=== PATIENT | male | born 1965 | race Caucasian/White ===

== ENCOUNTER → 2025-01-23 10:38 | Outpatient (REF) | payer OTHER, SELFPAY | LOC: MRI 3T 10:38 | PROVIDERS: ATTENDING PHYSICIAN Specialist; FAMILY PHYSICIAN Physician Assistant Medical | DX: R97.20 Elevated prostate specific antigen [PSA] (principal) | CPT/HCPCS: 72197; A9575 ==

== ENCOUNTER 2025-02-13 17:18 | Inpatient (IN) | payer OTHER, SELFPAY ==
[2025-02-13] VITALS (8 sets, daily range): BP systolic 129–168; BP diastolic 77–104; BMI 28.4; BMI 27.7
[2025-02-13 11:47] LABS: % Basophils 0.7 % (0-2); % Immature Granulocytes 0.5 % (0-0.5); % Lymphocytes 19.5 % (20.5-51.1); % Monocytes 8.3 % (1.7-9.3); Absolute Eosinophils 0.2 10^3/uL (0-0.7); Absolute Lymphocytes 1.2 10^3/uL (1.2-3.4); Absolute Monocytes 0.5 10^3/uL (0.1-0.6); Absolute Neutrophils 4.1 10^3/uL (1.4-6.5); Hemoglobin 14.8 g/dL (13.0-18.0); Mean Corp Hgb Conc. 34.4 g/dL (33.0-37.0); Mean Corpuscular Hgb 30.6 pg (27.0-31.0); Mean Platelet Volume 8.8 fL (7.4-10.4); Nucleated Red Blood Cells % 0 % (-); Platelet Count 276 10^3/uL (130-400); Red Blood Cell Count 4.83 10^6/uL (4.70-6.10); Red Cell Dist. Width 13.2 % (11.5-14.5)
--- NOTE | 2025-02-13 12:02 | ED.GENMED ---
History of Present Illness
General
Chief Complaint: Abdominal Symptoms
Source: patient
Exam Limitations: none
Time Seen by Provider: 02/13/25 11:40
History of Present Illness
History of Present Illness:
59-year-old male presents with epigastric and right upper quadrant abdominal pain that has been intermittent since 5 days ago. Initially had pain that suddenly woke him up from sleep doubled him over to the right upper quadrant. This was after
having a late dinner that included greasy foods. The day after this pain onset he saw that he had rn float colored stool. Since then he has not had intermittent discomfort to the epigastric region worse with eating. He had labs drawn as an
outpatient which demonstrated elevated bilirubin and liver functions. He is also currently being worked up for prostate cancer. He is due to receive a biopsy in the near future
Past History
Past History
ED Past Medical History: Hypercholesterolemia
Social History
Tobacco: Non-smoker
Personal:
Living: with family
Employment: Employed
Phy Exam
Physical Exam
Physical Exam:
General: Well-appearing male no acute respiratory distress
HEENT: Normocephalic atraumatic sclera anicteric
Heart: Regular rate and rhythm
Lungs: Clear
Abdomen: Soft tender to the epigastric region negative Bright sign no guarding
Extremities: No cyanosis no jaundice
Course
Orders/Labs/Results
Orders:
Orders
02/13/25 11:36
Electrocardiogram (*1) Urgent
Reason for Study: Abdominal Pain
EKG- Treatment ONCE
02/13/25 11:41
Complete Blood Count/With Diff Urgent
Comprehensive Metabolic Panel Urgent
Lipase Urgent
02/13/25 12:02
US Abdomen Complete/Upper Urgent
Comment:
Reason For Exam: ruq pain
02/13/25 15:04
CT Abd/pel W Iv And Oral Contr Urgent
Comment:
Reason For Exam: abdominal pain,n elevated LFT
Iohexol [Omnipaque] See Protocol PO NOW STA
Abnormal Lab Results
02/13/25
11:41
Lymphocytes % 19.5 L %
(20.5-51.1)
Glucose 119 H mg/dl
(70-99)
Total Bilirubin 2.8 H mg/dl
(0.2-1.3)
AST 303 H U/L
(17-59)
ALT 783 H* U/L
(0-50)
02/13/25 11:41
02/13/25 11:41
Vital Signs
Initial and Last Documented VS:
Initial Vital Signs
Temp Pulse Resp BP Pulse Ox
98.4 F 85 16 168/95 98
02/13/25 10:27 02/13/25 10:27 02/13/25 10:27 02/13/25 10:27 02/13/25 10:27
Last Documented Vital Signs
Temp Pulse Resp BP Pulse Ox
98.3 F 67 13 146/99 98
02/13/25 15:13 02/13/25 16:30 02/13/25 16:00 02/13/25 16:00 02/13/25 16:30
MDM/Problems Addressed
Differential Diagnosis Includes:
Upper abdominal pain. Consider biliary colic versus gastritis or pancreatitis versus constipation
Check labs. Ultrasound ordered
*Critical Care Note
Total Time (30-74mins, 75-104mins- exclusive of procedures): Not Applicable
Update Note
Update Note:
Ultrasound negative. Liver functions reviewed. Slightly improved from 2 days ago but still elevated. Discussed with GI who recommended CT with oral and IV contrast which is pending.
ED Attending Note
-
Portions of this chart may have been created with voice recognition software.� Occasional wrong word or��sound alike� substitutions may have occurred due to the inherent limitations of voice recognition software.
Discharge Plan
Departure
Patient Disposition: Admit
Date of Disposition: 02/13/25
Time of Disposition: 16:43
Presentation/result/management discussed w/ accepting MD/DO: Hospitalist
Discharge Problem:
Abdominal pain, Elevated liver function tests
Prescriptions:
No Action
Theragen Tablet
1 tab PO DAILY
pantoprazole [Protonix] 20 mg Tablet,Delayed Release (Dr/Ec)
20 mg PO DAILY
cefdinir 300 mg Capsule
300 mg PO BID
Rx Instructions:
take for 3 days before biopsy
sertraline 50 mg Tablet
75 mg PO DAILY
rosuvastatin [Crestor] 10 mg Tablet
10 mg PO QPM
Referrals:
Elaine Hernandez PA [Family Provider] -
Interventions
Interventions:
*Risk Screen - Suicide Last Done: 02/13/25 10:29
*General Assessment Last Done: 02/13/25 11:37
*Neglect/Abuse Screening Last Done: 02/13/25 10:29
*ED- Fall Risk Assessment Last Done: 02/13/25 11:37
*ED COVID-19 Vaccine History Last Done: 02/13/25 11:37
VX-Csqevg-Sniysaxofr Assessment Last Done: 02/13/25 11:37
Discharge Date and Time
Print Language: SINHALA
[2025-02-13 12:08] LABS: AST (SGOT) 303 U/L (17-59); Albumin 4.6 g/dl (3.5-5.0); Alkaline Phosphatase 71 U/L (38-126); Blood Urea Nitrogen 11 mg/dl (9-20); Calcium 9.6 mg/dl (8.4-10.2); Carbon Dioxide 28 mmol/L (22-30); Chloride 106 mmol/L (98-107); Estimated Creatinine Clearance 90 ml/min; Glucose 119 mg/dl (70-99); Lipase 175 U/L (23-300); Potassium 4.3 mmol/L (3.5-5.1); Sodium 144 mmol/L (135-145); Total Bilirubin 2.8 mg/dl (0.2-1.3); Total Protein 7.3 g/dl (6.3-8.2); eGFR > 60.00
[2025-02-13 12:19] LABS: ALT (SGPT) 783 U/L (0-50)
[2025-02-13] MEDS: OMNIPAQUE 50 ML PO (15:10)
--- NOTE | 2025-02-13 16:51 | HPS.HSE ---
Family Physician
-
Family Physician: Elaine Hernandez
Chief Complaint
-
Epigastric abdominal pain
History of Present Illness
59-year-old male with past medical history for GERD, hyperlipidemia, anxiety presents with epigastric l pain that has been intermittent since 5 days ago. Initially had pain that suddenly woke him up from sleep on Monday night. The pain lasted
for 20 minutes then it resolved on its own. this was after having a late dinner that included greasy foods. Patient stated multiple episodes of black-colored stool. Denied nausea, vomiting or diarrhea. Patient stated, pain is only intermittent.
he had labs drawn as an outpatient which demonstrated elevated bilirubin and liver functions. His PCP started him on Protonix. He is also currently being worked up for prostate cancer. He is due to receive a biopsy tomorrow. Patient denied any
headache, dizzy or syncope. Patient denied fever, chills, chest pain, short of breath. Patient denied dysuria hematuria.
Upon arrival he was noted to have elevated LFTs, bili. Ultrasound negative. CT pending. Admitting for further management
Patient is on cefdinir prophylactically for possible biopsy tomorrow. Patient canceled biopsy for tomorrow as he is getting admitted.
Medical History
Past Medical History
Past Medical History: Reports Other
Additional Past Medical History:
Anxiety, hyperlipidemia, insomnia, depression, rectal bleeding
Past Surgical History: Reports Other
Additional Past Surgical History:
Oral surgery
Social History
Tobacco: Non-smoker
Alcohol: Occasional
Drug: None
Personal:
Living: With Family
Family History
Family History: Not pertinent
Allergies / Home Medications
Allergies reflects when Allergies were last updated in [facility].
Home Medications with original date entered in [facility]
Allergy/Medication List:
Allergies
Allergy/AdvReac Type Severity Reaction Status Date / Time
No Known Allergies Allergy Verified 02/13/25 10:29
Home Medications
cefdinir 300 mg capsule 300 mg PO BID 02/13/25
pantoprazole 20 mg tablet,delayed release (Protonix) 20 mg PO DAILY 02/13/25
rosuvastatin 10 mg tablet (Crestor) 10 mg PO QPM 02/13/25
sertraline 50 mg tablet 75 mg PO DAILY 02/13/25
therapeutic multivitamin 1 tab PO DAILY 02/13/25
Review of Systems
-
Constitutional: Reports No Symptoms
EENT: Reports No Symptoms
Respiratory: Reports No Symptoms
Cardiac: Reports No Symptoms
Abdomen/GI: Reports Other (Epigastric pain with light-colored stool)
: Reports No Symptoms
Musculoskeletal: Reports No Symptoms
Skin: Reports No Symptoms
Neurological: Reports No Symptoms
Endocrine: Reports No Symptoms
Hematologic/Lymphatic: Reports No Symptoms
Psych: Reports No Symptoms
Physical Exam
Vital Signs
Vital Signs
Temp Pulse Resp BP Pulse Ox
98.3 F 67 13 146/99 98
02/13/25 15:13 02/13/25 16:30 02/13/25 16:00 02/13/25 16:00 02/13/25 16:30
Physical Exam
General: Well Developed, Well Nourished and No Apparent Distress
HEENT: NormoCephalic, Moist mucous membranes and Atraumatic
Respiratory: Clear
Cardiac: S1/S2 and Regular Rhythm; No Murmur or Rub
GI: Soft, Non Tender, Non Distended and Normal Bowel Sounds; No Organomegaly
Rectal: Deferred by Provider
Musculoskeletal: No Clubbing, No Cyanosis and No Edema
Skin: No Rash
Neuro: AO x 3 and Nonfocal/grossly intact
Psych: Calm
Laboratory Results
-
02/13/25 11:41
02/13/25 11:41
Laboratory Results
Total Bilirubin 2.8 mg/dl (0.2-1.3) H 02/13/25 11:41
AST 303 U/L (17-59) H 02/13/25 11:41
ALT 783 U/L (0-50) H* 02/13/25 11:41
Alkaline Phosphatase 71 U/L (38-126) 02/13/25 11:41
Lipase 175 U/L (23-300) 02/13/25 11:41
Data Reviewed
-
Ultrasound: Report Reviewed by me
Lab Data: Labs Reviewed by me
Impression/Plan
-
# Abdominal pain
- AST 303, ALT 783, bili 2.8, lipase normal
- Ultrasound of abdomen with no evidence of cholelithiasis, cholecystitis or bilaterally duct dilation. Small gallbladder polyp versus 2 mm in diameter. Pancreas was not well-visualized due to overlying bowel gas
- CT abdomen pelvis pending
-NPO after MN
-dilaudid prn for pain
- GI consult
# Hyperlipidemia
- Hold Crestor due to elevated LFTs
# Anxiety
- Sertraline continued
# DVT prophylaxis
- scd
# CODE STATUS
- Full code
--- NOTE | 2025-02-13 17:13 | W.PN.UPDATE ---
Update Note
Progress Note Update
This is an addendum to H&P written by KENNEL KEEPER Hansa Murillo
I saw and examined the patient.
The KENNEL KEEPER's note was reviewed and I agree with the note.
Comment:
Mr. Howard Peerira is a 59 yo man with hx HLD presents to the ER with report of significant abdominal pain Monday evening post eating a fatty meal followed by intermittent pains. Outpatient labs with elevated liver enzymes, patient sent to the ER.
He is currently without pain.
Triage VS: T 98.4, P 85, RR 16, BP 168,/95, SpO2 98%
On exam patient is awake, alert, in no distress. Chest clear; CV: S1, S2, RRR; Abdomen soft, non-tender, neg Bright's sign
LABS: WBC 6, Hg 14.8, PLT 276, Na 144, K+ 4.3, CO2 28, BUN 11, Cr 1.0, Glucose 119, T. Bili 2.8, AST 303, ALT 783, Alk Phos 71
Lipase 175
ABDOMINAL US
IMPRESSION:
1. No evidence of cholelithiasis, acute cholecystitis, or biliary ductal dilation.
2. Small gallbladder polyp measures 2 mm in diameter, likely benign.
3. Pancreas was not well visualized due to overlying bowel gas.
Post-prandial abdominal pain, severe 5 days ago
Elevated Liver Enzymes
-patient had labs checked 2 days ago that were reportedly more elevated than current labs (do not have access in [facility]). History suggestive of passed gallstone. Currently pain free
-admit to med/surg
-F/U CT A/P with oral contrast, recommended by GI
-formal GI consult
-will likely need GS consult to discuss cholecystectomy once work up complete
-clear liquid diet, NPO after MN
HLD - hold PARAPROFESSIONAL INTERPRETER statin
Remainder of plan per KENNEL KEEPER note
Time spent on patient care 76 minutes
--- NOTE | 2025-02-13 21:00 | PTCARENOTE ---
Pt a 59-year-old male arrived on at 20:45. Pt has a PMH for GERD, hyperlipidemia, anxiety & Covid. Pt presented in ED with epigastric pain that has been intermittent since 5 days ago, elevated LFTs & bilirubin. Pt placed on a CLD, NPO at
midnight. GI consult ordered tomorrow. Pt AOx3, bed in a low position, call light in reach, denied pain at this time, care on going.
[2025-02-14] VITALS (9 sets, daily range): BP systolic 127–163; BP diastolic 72–94
[2025-02-14 07:39] LABS: % Basophils 0.8 % (0-2); % Eosinophils 4.9 % (0-6); % Immature Granulocytes 0.6 % (0-0.5); % Lymphocytes 17.5 % (20.5-51.1); % Monocytes 8.8 % (1.7-9.3); % Neutrophils 67.4 % (42.2-75.2); Absolute Basophils 0.1 10^3/uL (0-0.2); Absolute Eosinophils 0.3 10^3/uL (0-0.7); Absolute Lymphocytes 1.1 10^3/uL (1.2-3.4); Absolute Monocytes 0.6 10^3/uL (0.1-0.6); Absolute Neutrophils 4.3 10^3/uL (1.4-6.5); Hematocrit 43.6 % (39.0-52.0); Hemoglobin 14.4 g/dL (13.0-18.0); Mean Corpuscular Volume 90.8 fL (80.0-94.0); Mean Platelet Volume 9.3 fL (7.4-10.4); Nucleated Red Blood Cells % 0 % (-); Platelet Count 261 10^3/uL (130-400); Red Cell Dist. Width 13.3 % (11.5-14.5); White Blood Cell Count 6.3 10^3/uL (4.8-10.8)
[2025-02-14 08:11] LABS: ALT (SGPT) 691 U/L (0-50); AST (SGOT) 255 U/L (17-59); Albumin 4.7 g/dl (3.5-5.0); Alkaline Phosphatase 63 U/L (38-126); Blood Urea Nitrogen 14 mg/dl (9-20); Calcium 9.5 mg/dl (8.4-10.2); Carbon Dioxide 28 mmol/L (22-30); Chloride 103 mmol/L (98-107); Estimated Creatinine Clearance 82 ml/min; Glucose 96 mg/dl (70-99); Magnesium 2.2 mg/dl (1.6-2.3); Potassium 4.8 mmol/L (3.5-5.1); Sodium 142 mmol/L (135-145); Total Bilirubin 1.7 mg/dl (0.2-1.3); Total Protein 6.8 g/dl (6.3-8.2); eGFR > 60.00
--- NOTE | 2025-02-14 08:58 | CON.GI ---
Addendum entered and electronically signed by Giana Chery MD 02/14/25 13:57:
I saw and examined the patient.
The TRAFFIC SERGEANT's note was reviewed and I agree with the note.
Impression:
Epigastric/right upper quadrant pain/Elevated LFTs/ CT imaging - Choledocholithiasis,cholelithiasis
plan
NPO
ERCP today
continue to trend LFT
follow up with surgery for cholecystectomy
Original Note:
Consultation
-
Date/Time Consultation Requested: 02/13/252040
Date/Time Consultation Performed: 02/14/25839
Requesting Provider: MISHEL Powell
Performing Provider: Dr. Reid/MISHEL Guardado
Reason for Consultation: Elevated LFTs
Medical History
Chief Complaint / HPI
Chief Complaint: RUQ pain, elevated LFTs
History of Present Illness:
59-year-old male with past medical history of hyperlipidemia, anxiety, GERD, elevated PSA due to have biopsy of prostate presents to the emergency room with 5-day history of epigastric/right upper quadrant pain. Patient went to PCP for the same.
Had outpatient lab work that showed elevated LFTs. Asked to evaluate for the same. The patient states that last Monday evening he had large BLTs and bourbon for dinner. Later that evening he awoke in the middle the night with epigastric/right
upper quadrant pain that was a severe discomfort/ache. He states that he almost came to the emergency room however after about 20 minutes this eased up. He states that he had to get up and straighten up his back and walk around. He states this
eventually dissipated. The following morning he was eating a granola bar and the pain came back however slightly. He continued to have pain on and off that was similar especially with eating. He thought he had some indigestion or acid reflux. He
states on Monday morning he noticed an orange color to his urine. He noticed his bowel movements were mims/munson. He did go to the PCP that day. He was prescribed pantoprazole 20 mg daily. He was also given lab slips this showed WBC 6.2,
hemoglobin 15.5, hematocrit 47.0, platelets 314, sodium 144, potassium 5.1, BUN 11, creatinine 1.11, total bilirubin 2.8, AST 507, ALT 1025, alk phos 75, lipase 53, amylase 71, H. pylori breath test negative, urinalysis positive for bilirubin only.
The patient had a prostate biopsy planned and was instructed to take cefdinir which he started on 02/12/2025. He was called with results of his labs. He was instructed to come to the emergency room for further workup. We were asked to evaluate for
the same. Other than this cefdinir which happened after the elevated LFTs as well as the pantoprazole which also started after the elevated LFTs he has had no recent changes in medications. He did have a tick bite that was not a deer tick
approximately 2 weeks ago. He denies any tattoos, piercings, IV drug use. The patient drinks 1 alcoholic beverage a week. The patient denies any fevers, chills, nausea, vomiting, melena, hematochezia, dysphagia or odynophagia. No early satiety
or unintentional weight loss. The patient states he is still having social research assistant colored stools. His urine is becoming social research assistant. He has no further abdominal discomfort. His LFTs are improving. WBC 6.3, hemoglobin 14.4, hematocrit 43.6, platelets 261,
Sodium 142, potassium 4.8, total bilirubin 1.7, direct 0.7, AST 255, ALT 691, alk phos 63. CT abdomen pelvis with oral and IV contrast shows no significant intrahepatic biliary dilatation. There does appear to be a few gallstones within a
borderline prominent common bile duct. There is at least 1 tiny gallstone seen within a slightly prominent gallbladder with incidental proximal gallbladder fold noted. No gross gallbladder wall thickening. Pancreas within normal limits.
Past Medical History
Past Medical History: GERD, Hypercholesterolemia and Other (Anxiety, elevated PSA)
Past Surgical History: Other ([place] teeth extraction)
Social History
Tobacco: Non-Smoker
Alcohol: Occasional (1 drink a week)
Drug: None
Personal:
Living: With Family
Family History
Family History: Other (Mother with history of colon cancer, no other family history of gastrointestinal malignancy or IBD)
Allergies / Home Medications
Allergy/AdvReac Type Severity Reaction Status Date / Time
No Known Allergies Allergy Verified 02/13/25 10:29
�Medication �Instructions �Recorded
cefdinir 300 mg capsule 300 mg PO BID Infection 02/13/25
pantoprazole 20 mg tablet,delayed 20 mg PO DAILY GERD 02/13/25
release (Protonix)
rosuvastatin 10 mg tablet (Crestor) 10 mg PO QPM High Cholesterol 02/13/25
sertraline 50 mg tablet 75 mg PO DAILY Mental 02/13/25
Health/Anxiety
therapeutic multivitamin 1 tab PO DAILY Supplement 02/13/25
Review of Systems
-
All other systems: A 12 pt ROS was Negative except as stated above in HPI
Vital Signs
Temp Pulse Resp BP Pulse Ox
97.6 F 74 16 128/85 97
02/14/25 07:26 02/14/25 07:26 02/14/25 07:26 02/14/25 07:26 02/14/25 07:26
Physical Exam
Exam
General: No Apparent Distress
HEENT: Anicteric
Respiratory: Clear
Cardiac: Regular Rhythm
GI: Soft, Non Tender, Non Distended and Normal Bowel Sounds
Skin: Warm and Dry
Neuro: AO x 3
Psych: Calm
Results
WBC 6.3 10^3/uL (4.8-10.8) 02/14/25 06:03
Hgb 14.4 g/dL (13.0-18.0) 02/14/25 06:03
Hct 43.6 % (39.0-52.0) 02/14/25 06:03
MCV 90.8 fL (80.0-94.0) 02/14/25 06:03
Plt Count 261 10^3/uL (130-400) 02/14/25 06:03
Absolute Neuts (auto) 4.3 10^3/uL (1.4-6.5) 02/14/25 06:03
Sodium 142 mmol/L (135-145) 02/14/25 06:03
Potassium 4.8 mmol/L (3.5-5.1) 02/14/25 06:03
Chloride 103 mmol/L (98-107) 02/14/25 06:03
Carbon Dioxide 28 mmol/L (22-30) 02/14/25 06:03
BUN 14 mg/dl (9-20) 02/14/25 06:03
Creatinine 1.1 mg/dL (0.7-1.3) 02/14/25 06:03
Calcium 9.5 mg/dl (8.4-10.2) 02/14/25 06:03
Total Bilirubin 1.7 mg/dl (0.2-1.3) H D 02/14/25 06:03
AST 255 U/L (17-59) H 02/14/25 06:03
ALT 691 U/L (0-50) H* 02/14/25 06:03
Alkaline Phosphatase 63 U/L (38-126) 02/14/25 06:03
Lipase 175 U/L (23-300) 02/13/25 11:41
Diagnostic Image Results:
Ultrasound abdomen 02/13/2025:
1. No evidence of cholelithiasis, acute cholecystitis, or biliary ductal dilation.
2. Small gallbladder polyp measures 2 mm in diameter, likely benign.
3. Pancreas was not well visualized due to overlying bowel gas
CT abdomen pelvis with oral and IV contrast 02/13/2025:
At least one small gallstone seen within a relative prominent gallbladder. Small stones seen in a borderline prominent common bile duct. No findings to suggest significant intrahepatic biliary tract dilatation. Consider ERCP for more complete
evaluation.
Small hepatic cysts and additional subcentimeter low-attenuation hepatic lesions too small to characterize.
Prior GI Procedures:
EGD: None
Colonoscopy: 08/24/2020 ([facility]): - The entire examined colon is normal.
- No specimens collected. Repeat colonoscopy 5 years.
Colonoscopy 06/21/2017 ([facility]):- Post-polypectomy scar in the cecum. Residual polypoid
tissue removed.
- One 8 mm polyp in the ascending colon, removed with a
hot snare. Resected and retrieved.
Colonoscopy 09/01/2015 ([facility]): - The examined portion of the ileum was normal.
- One 12 mm polyp in the cecum. Resected and retrieved.
Clips were placed.
- The examination was otherwise normal on direct and
retroflexion views.
Assessment / Plan
-
59-year-old male with past medical history of hyperlipidemia, anxiety, GERD, elevated PSA due to have biopsy of prostate presents to the emergency room with 5-day history of epigastric/right upper quadrant pain. Patient went to PCP for the same.
Had outpatient lab work that showed elevated LFTs. Asked to evaluate for the same. The patient states that last Monday evening he had large BLTs and bourbon for dinner. Later that evening he awoke in the middle the night with epigastric/right
upper quadrant pain that was a severe discomfort/ache. He states that he almost came to the emergency room however after about 20 minutes this eased up. He states that he had to get up and straighten up his back and walk around. He states this
eventually dissipated. The following morning he was eating a granola bar and the pain came back however slightly. He continued to have pain on and off that was similar especially with eating. He thought he had some indigestion or acid reflux. He
states on Monday morning he noticed an orange color to his urine. He noticed his bowel movements were mims/munson. He did go to the PCP that day. He was prescribed pantoprazole 20 mg daily. He was also given lab slips this showed WBC 6.2,
hemoglobin 15.5, hematocrit 47.0, platelets 314, sodium 144, potassium 5.1, BUN 11, creatinine 1.11, total bilirubin 2.8, AST 507, ALT 1025, alk phos 75, lipase 53, amylase 71, H. pylori breath test negative, urinalysis positive for bilirubin only.
The patient had a prostate biopsy planned and was instructed to take cefdinir which he started on 02/12/2025. He was called with results of his labs. He was instructed to come to the emergency room for further workup. We were asked to evaluate for
the same. Patient with CT imaging showing choledocholithiasis. The patient also has cholelithiasis. Still with acholic stools.
Impression:
Choledocholithiasis
Elevated LFTs
Cholelithiasis
Epigastric/right upper quadrant pain, improved however did take cefdinir for anticipated prostate biopsy
Plan:
- ERCP today
- Keep patient n.p.o.
- CBC, LFTs in a.m.
- Surgery consult as per medicine attending
- Hepatitis panel pending
- Further recommendations to be forthcoming
-
-
Thank you for consultation and allowing me to participate in the patient's care. Please call the dehydrogenation converter operator GI physician during the after hours with any questions or concerns.
[2025-02-14] MEDS: ZOLOFT 75 MG PO (08:59)
[2025-02-14] MEDS: PROTONIX IV 40 MG IV (09:00)
[2025-02-14] MEDS: NSS (PRESERVATIVE FREE) 10 ML IV (09:00)
[2025-02-14 09:07] LABS: Direct Bilirubin 0.7 mg/dl (0.0-0.4)
--- NOTE | 2025-02-14 10:27 | CON.GS ---
Addendum entered and electronically signed by Jeff Jaeger MD 02/14/25 14:42:
I saw and examined the patient independently.
The resident's documentation was reviewed and I agree with the note, assessment and plan except where noted below.
Comment: This is a 59-year-old male who presents with a 5-day history of postprandial right upper quadrant pain found to have choledocholithiasis and cholelithiasis on CT. Currently going for an ERCP today, general surgery consulted for interval
cholecystectomy.
Will plan for outpatient interval cholecystectomy in the next 4 to 6 weeks. If patient is staying through the weekend however may plan for surgery this admission.
All questions answered, patient agreeable to plan of care above.
General surgery will follow peripherally, please call with any questions or concerns.
I spent 60 minutes in total for the care of this patient today including direct patient care and counseling, reviewing labs, imaging, coordination of care, as well as documentation.
Original Note:
Consultation
-
Date/Time Consultation Requested: 02/14/2025 09:46
Date/Time Consultation Performed: 02/14/2025 10:15
Requesting Provider: Patricia Chavez
Performing Provider: Dr. Jeff Jaeger
Reason for Consultation: Cholelithiasis
Medical History
-
Chief Complaint: Intermittent abdominal pain
History of Present Illness:
59-year male with past medical history of GERD, hyperlipidemia, anxiety, insomnia presented to hospital with intermittent epigastric pain for past 5 days. Pain started on Monday night that woke him up from sleep and resolved after 20 minutes.
Subsequent episodes occurred after eating greasy meals. Patient stated he had consistent pale-colored stools. He denied any nausea, vomiting, diarrhea, blood in stool. He went to his PCP and got his labs done. In the interim, PCP started him on
a PPI. LFTs noted to be elevated with AST 507, ALT 1025, T. bili 2.8. His PCP recommended for him to come to the ED.
Of note, patient was planning for prostate biopsy for evaluation of prostate cancer. He is on prophylactic cefdinir started on 02/12/25.
Upon arrival to ED, vital stable, WBC 6.0, T. bili 2.8, AST 303, ALT 783, alk phos 71, lipase 175. Right upper quadrant ultrasound revealed no evidence of cholelithiasis cholecystitis or biliary duct dilation. CT revealed at least 1 small
gallstone with a relative prominent gallbladder and small stones seen in borderline prominent common bile duct. There is no findings to checks significant intrahepatic biliary tract dilation. Recommendation for further evaluation with ERCP. Small
hepatic cyst and additional subcentimeter low-attenuation hepatic lesions too small to characterize were also noted. Patient was placed on n.p.o. and GI and general surgery were consulted.
Past Medical History
Past Medical History: Other (GERD, hyperlipidemia, anxiety, insomnia)
Past Surgical History: Other ([place] tooth extraction)
Social History
Tobacco: Non-Smoker
Alcohol: Occasional (1 drink a week)
Drug: None
Personal:
Living: With Family
Employment: Employed
Family History
Family History: Other (Mother history of colon cancer)
Allergies / Home Medications
Allergy/AdvReac Type Severity Reaction Status Date / Time
No Known Allergies Allergy Verified 02/13/25 10:29
�Medication �Instructions �Recorded �Confirmed �Type
cefdinir 300 mg capsule 300 mg PO BID Infection 02/13/25 02/13/25 History
pantoprazole 20 mg tablet,delayed 20 mg PO DAILY GERD 02/13/25 02/13/25 History
release (Protonix)
rosuvastatin 10 mg tablet (Crestor) 10 mg PO QPM High Cholesterol 02/13/25 02/13/25 History
sertraline 50 mg tablet 75 mg PO DAILY Mental 02/13/25 02/13/25 History
Health/Anxiety
therapeutic multivitamin 1 tab PO DAILY Supplement 02/13/25 02/13/25 History
Review of Systems
-
History Source: Patient
EENT: No Symptoms
Respiratory: No Symptoms
Cardiac: No Symptoms
Abdomen/GI: No Symptoms
Skin: No Symptoms
Neurological: No Symptoms
A 10 point review of systems was completed, and was negative except as per HPI.
Physical Exam
Vital Signs
Temp Pulse Resp BP Pulse Ox
97.6 F 74 16 128/85 97
02/14/25 07:26 02/14/25 07:26 02/14/25 07:26 02/14/25 07:26 02/14/25 07:26
02/13/25 02/14/25 02/15/25
06:59 06:59 06:59
Actual Weight 97.749 kg
Body Mass Index (BMI) 27.7
Lab Results
02/14/25 06:03
02/14/25 06:03
WBC 6.3 10^3/uL (4.8-10.8) 02/14/25 06:03
Hgb 14.4 g/dL (13.0-18.0) 02/14/25 06:03
Hct 43.6 % (39.0-52.0) 02/14/25 06:03
Plt Count 261 10^3/uL (130-400) 02/14/25 06:03
Abs Immat Gran (auto) 0.0 10^3/uL (0-0.05) 02/14/25 06:03
Neutrophils % 67.4 % (42.2-75.2) 02/14/25 06:03
Physical Exam
General: Well Developed, Well Nourished, No Apparent Distress and Comfortable
GI: Soft, Non Tender, Non Distended and Normal Bowel Sounds
Assessment / Plan
-
59-year-old male presenting with intermittent epigastric pain for last 5 days with elevated liver transaminases and small stones noted in common bile duct.
AFVSS
WBC wnl, however on cefdinir last 2 days anticipating prostate biopsy
Abdomen nondistended, no tenderness to palpation, no guarding, no rigidity, Bright sign negative
#Choledocholithiasis
#Elevated LFTs
#Cholelithiasis
#Epigastric/right upper quadrant intermittent pain
- Abdominal exam is benign, no surgical management indicated at this point in time
- Keep n.p.o.
- Start fluids
- Monitor LFTs, now downtrending - likely passed a stone
- ERCP per GI
- Monitor abdominal exam
[2025-02-14 10:48] LABS: Hepatitis B Surface Antigen Negative (Negative)
[2025-02-14 10:54] LABS: Hepatitis A IgM Antibody Negative (Negative); Hepatitis B Core Ab, IgM Negative (Negative)
[2025-02-14 11:06] LABS: Hepatitis B Surface Antibody Negative; Hepatitis C Antibody Negative (Negative)
--- NOTE | 2025-02-14 11:51 | CM ---
Reviewed the chart notes and spoke with the patient at the bedside. The patient resides with his spouse, daughter, and son in a two story home with two steps to enter. The patient reports no DME/VN/SNF in the past. The patient confirmed his
pharmacy of choice is [facility]. CM continues to be available to patient/family and is monitoring medical plan for needs at discharge.
Plan: Discharge to home when medically stable with no anticipated needs.
--- NOTE | 2025-02-14 15:53 | W.PN.UPDATE ---
Update Note
Progress Note Update
I updated ERCP results with patient's . All questions answered. Continue follow-up with surgery for cholecystectomy
--- NOTE | 2025-02-14 16:01 | W.PN.HOSP.TC ---
Today's Communication/Plan
-
ERCP
Surgery consulted
Assessment / Plan
Assessment / Plan
Impression:
Biliary colic
Choledocholithiasis
Other conditions:
Dyslipidemia.
On statin [employer].
Plan
Ultrasound abdomen 02/13/2025:
1. No evidence of cholelithiasis, acute cholecystitis, or biliary ductal dilation.
2. Small gallbladder polyp measures 2 mm in diameter, likely benign.
3. Pancreas was not well visualized due to overlying bowel gas
CT abdomen pelvis with oral and IV contrast 02/13/2025:
At least one small gallstone seen within a relative prominent gallbladder. Small stones seen in a borderline prominent common bile duct. No findings to suggest significant intrahepatic biliary tract dilatation. Consider ERCP for more complete
evaluation.
Small hepatic cysts and additional subcentimeter low-attenuation hepatic lesions too small to characterize.
ERCP 02/14 with filling defect consistent with a stone was seen on cholangiogram.
Choledocholithiasis/sludge. Removal of stone with biliary sludge, biliary synovectomy and balloon extraction
Clear liquid diet
Surgery consultation for cholecystectomy
Follow FTP
PPI
Hold statin
Anticipated Discharge: > 48 hours
Subjective/Interval History
-
Date of Service: February 14, 2025
Objective Data
-
Labs:
Laboratory Results
02/14/25
06:03
WBC 6.3
Hgb 14.4
Hct 43.6
Plt Count 261
Sodium 142
Potassium 4.8
Chloride 103
Carbon Dioxide 28
BUN 14
Creatinine 1.1
Glucose 96
Calcium 9.5
Total Bilirubin 1.7 H D
AST 255 H
ALT 691 H*
Alkaline Phosphatase 63
Vital Signs:
Vital Signs
Temp Pulse Resp BP Pulse Ox
97.5 F 64 16 153/94 94
02/14/25 15:45 02/14/25 15:45 02/14/25 15:45 02/14/25 15:45 02/14/25 15:45
I&O
02/13/25 02/14/25 02/15/25
06:59 06:59 06:59
Intake Total 600 / 600 150 / 150
Balance 600 / 600 150 / 150
Physical Exam
-
General: Well Developed and No Apparent Distress
HEENT: Normocephalic, Atraumatic and Moist Mucous Membranes
Respiratory: Clear to Auscultation
Cardiac: Regular Rhythm and S1/S2; Negative Murmur, Rub or Gallop
GI: Soft, Nontender, Nondistended and Normal Bowel Sounds; Negative Organomegaly
Rectal: Deferred by Provider
Musculoskeletal: No Clubbing, No Cyanosis and No Edema
Skin: Negative Rash
Neuro: Nonfocal/Grossly Intact
[2025-02-15 03:18] VITALS: BP 130/74
[2025-02-15 07:12] LABS: Hematocrit 39.9 % (39.0-52.0); Hemoglobin 13.7 g/dL (13.0-18.0); Mean Corp Hgb Conc. 34.3 g/dL (33.0-37.0); Mean Corpuscular Hgb 30.4 pg (27.0-31.0); Mean Corpuscular Volume 88.7 fL (80.0-94.0); Mean Platelet Volume 9.1 fL (7.4-10.4); Platelet Count 273 10^3/uL (130-400); Red Cell Dist. Width 12.9 % (11.5-14.5); White Blood Cell Count 8.3 10^3/uL (4.8-10.8)
[2025-02-15 07:15] VITALS: BP 138/82
[2025-02-15 08:07] LABS: ALT (SGPT) 549 U/L (0-50); AST (SGOT) 155 U/L (17-59); Albumin 4.5 g/dl (3.5-5.0); Alkaline Phosphatase 54 U/L (38-126); Blood Urea Nitrogen 16 mg/dl (9-20); Calcium 9.1 mg/dl (8.4-10.2); Carbon Dioxide 26 mmol/L (22-30); Chloride 103 mmol/L (98-107); Direct Bilirubin 0.5 mg/dl (0.0-0.4); Estimated Creatinine Clearance 90 ml/min; Glucose 116 mg/dl (70-99); Potassium 4.7 mmol/L (3.5-5.1); Sodium 142 mmol/L (135-145); Total Bilirubin 1.2 mg/dl (0.2-1.3); Total Protein 6.7 g/dl (6.3-8.2); eGFR > 60.00
[2025-02-15] MEDS: NSS (PRESERVATIVE FREE) 10 ML IV (08:42)
[2025-02-15] MEDS: PROTONIX IV 40 MG IV (08:42)
[2025-02-15] MEDS: ZOLOFT 75 MG PO (08:42)
--- NOTE | 2025-02-15 08:51 | W.PN.GI.CBS2 ---
Today's Communication / Plan
-
Await formal surgery recs but per pt [facility] OP basis
Adv to low fat diet
Ok from GI perspective for hosp d/c today if tolerates above
Will sign off please call for ?
Assessment / Plan
-
59-year-old male with past medical history of hyperlipidemia, anxiety, GERD, elevated PSA due to have biopsy of prostate presents to the emergency room with 5-day history of epigastric/right upper quadrant pain. Patient went to PCP for the same.
Had outpatient lab work that showed elevated LFTs. Asked to evaluate for the same. The patient states that last Monday evening he had large BLTs and bourbon for dinner. Later that evening he awoke in the middle the night with epigastric/right
upper quadrant pain that was a severe discomfort/ache. He states that he almost came to the emergency room however after about 20 minutes this eased up. He states that he had to get up and straighten up his back and walk around. He states this
eventually dissipated. The following morning he was eating a granola bar and the pain came back however slightly. He continued to have pain on and off that was similar especially with eating. He thought he had some indigestion or acid reflux. He
states on Monday morning he noticed an orange color to his urine. He noticed his bowel movements were mims/munson. He did go to the PCP that day. He was prescribed pantoprazole 20 mg daily. He was also given lab slips this showed WBC 6.2,
hemoglobin 15.5, hematocrit 47.0, platelets 314, sodium 144, potassium 5.1, BUN 11, creatinine 1.11, total bilirubin 2.8, AST 507, ALT 1025, alk phos 75, lipase 53, amylase 71, H. pylori breath test negative, urinalysis positive for bilirubin only.
The patient had a prostate biopsy planned and was instructed to take cefdinir which he started on 02/12/2025. He was called with results of his labs. He was instructed to come to the emergency room for further workup. We were asked to evaluate for
the same. Patient with CT imaging showing choledocholithiasis. The patient also has cholelithiasis. Still with acholic stools.
Impression:
Choledocholithiasis
Elevated LFTs
Cholelithiasis
Epigastric/right upper quadrant pain, improved however did take cefdinir for anticipated prostate biopsy
Plan:
- ERCP 02/14 with stone removal
- No Post ERCP pain. LFTs downtrending
- Per pt he was seen by surgery and recommend [facility] outpatient basis (do not yet see note)
- According to above info adv to low fat diet
- If tolerates ok from GI perspective for hosp d/c today
GI will sign off please call for ?
Subjective
Subjective
Date of Service: February 15, 2025
Denies any abd pain. Tolerating liquid diet. No nausea/vomiting
Objective
Data Reviewed
Laboratory Data:
Laboratory Results
02/15/25 06:12
02/15/25 06:12
Laboratory Results
Magnesium 2.2 mg/dl (1.6-2.3) 02/14/25 06:03
Total Bilirubin 1.2 mg/dl (0.2-1.3) 02/15/25 06:12
AST 155 U/L (17-59) H 02/15/25 06:12
ALT 549 U/L (0-50) H* 02/15/25 06:12
Alkaline Phosphatase 54 U/L (38-126) 02/15/25 06:12
Lipase 175 U/L (23-300) 02/13/25 11:41
Vital Signs and I&O:
Vital Signs
Temp Pulse Resp BP Pulse Ox
98.1 F 65 16 138/82 96
02/15/25 07:15 02/15/25 07:15 02/15/25 07:15 02/15/25 07:15 02/15/25 07:15
I&O
02/14/25 02/15/25 02/16/25
06:59 06:59 06:59
Intake Total 600 / 600 1829
Balance 600 / 600 1829
Physical Exam
Physical Exam
GEN: No acute distress, conversant, pleasant
HEENT: anicteric, extraocular movements intact, clear oropharynx without exudates
GI: soft, non-distended, not tender to palpation, normal active bowel sounds, no hepatosplenomegaly
EXT: warm, well perfused, no edema bilaterally
NEURO: AAOx3, non-focal
[2025-02-15 11:10] VITALS: BP 125/73
--- NOTE | 2025-02-15 13:03 | CM ---
CM reviewed chart and noted dc order
Bedside meeting and no dc needs noted
Spouse will transport home
Discharge Disposition- home, no needs, spouse transport
--- NOTE | 2025-02-15 13:18 | PTCARENOTE ---
Patient AAOx3, no c/o pain. Eager to go home, ambulating in room, tolerating low fat diet.. Patient's assessment unchanged from 7-11.
--- NOTE | 2025-02-15 15:46 | W.DCSUMMARY ---
Discharge Summary
Discharge Data
Date of Admission: 02/13/25
Date of Discharge: 02/15/25
-
Pending Results: No
Hospital Course
59-year-old male with past medical history for GERD, hyperlipidemia, anxiety
Presented with a 5-day history of epigastric right upper quadrant pain. Continue to have intermittent abdominal pain with notation of change in urine color to orange in stool color change to mims/munson. Outpatient labs demonstrated increase in LFTs.,
H. pylori breath test negative, urine analysis positive for bilirubin. PCP instructed to present to the emergency department. CT imaging demonstrating cholelithiasis/choledocholithiasis. ERCP ordered demonstrating choledocholithiasis with
sludge. Complete removal of stone and sludge was accomplished by biliary sphincterotomy and balloon extraction. Evaluated by surgery recommended outpatient follow-up for scheduled outpatient/elective cholecystectomy. Started diet advance slowly
as tolerated. LFTs began improving post ERCP.
Abdomianl ultrasound
IMPRESSION:
1. No evidence of cholelithiasis, acute cholecystitis, or biliary ductal dilation.
2. Small gallbladder polyp measures 2 mm in diameter, likely benign.
3. Pancreas was not well visualized due to overlying bowel gas.
CTAP
IMPRESSION:
At least one small gallstone seen within a relative prominent gallbladder. Small stones seen in a borderline prominent common bile duct. No findings to suggest significant intrahepatic biliary tract dilatation. Consider ERCP for more complete
evaluation.
Small hepatic cysts and additional subcentimeter low-attenuation hepatic lesions too small to characterize.
ERCP
Impression: - A filling defect consistent with a stone was seen on
the cholangiogram.
- Choledocholithiasis/ sludge was found. Complete
removal was accomplished by biliary sphincterotomy and
balloon extraction.
Seen and examined on the day of discharge. No new complaints. No acute overnight events.
Passing gas had a bowel movement no abdominal pain tolerating diet.
He understands that he has to call the surgical office on Monday to make a appointment for cholecystectomy
NAD
Scleral Anicteric
DMM
No JVD
CTABL
RRR, S1/S2
Soft, NT, ND, BS+
Warm, Dry
AAOx3
Calm
More than 30 minutes spent in discharge including
Final examination of the patient
Summarizing hospital stay
Instructions for continuing care to all relevant caregivers
Preparation of discharge records, prescriptions, and referral forms
Total time spent (in minutes): 33min
Discharge Plan
-
Patient Disposition: Home (Routine Discharge)
Discharge Diagnosis/Procedures: Choledocholithiasis
Biliary colic
Cholelithiasis
Condition: Good
Diet: Low Fat and Low Cholesterol
Activity Restrictions/Additional Instructions:
Presented with a 5-day history of epigastric right upper quadrant pain. Continue to have intermittent abdominal pain with notation of change in urine color to orange in stool color change to mims/munson. Outpatient labs demonstrated increase in LFTs.,
H. pylori breath test negative, urine analysis positive for bilirubin. PCP instructed to present to the emergency department. CT imaging demonstrating cholelithiasis/choledocholithiasis. ERCP ordered demonstrating choledocholithiasis with
sludge. Complete removal of stone and sludge was accomplished by biliary sphincterotomy and balloon extraction. Evaluated by surgery recommended outpatient follow-up for scheduled outpatient/elective cholecystectomy. Started diet advance slowly
as tolerated. LFTs began improving post ERCP.
Abdomianl ultrasound
IMPRESSION:
1. No evidence of cholelithiasis, acute cholecystitis, or biliary ductal dilation.
2. Small gallbladder polyp measures 2 mm in diameter, likely benign.
3. Pancreas was not well visualized due to overlying bowel gas.
CTAP
IMPRESSION:
At least one small gallstone seen within a relative prominent gallbladder. Small stones seen in a borderline prominent common bile duct. No findings to suggest significant intrahepatic biliary tract dilatation. Consider ERCP for more complete
evaluation.
Small hepatic cysts and additional subcentimeter low-attenuation hepatic lesions too small to characterize.
ERCP
Impression: - A filling defect consistent with a stone was seen on
the cholangiogram.
- Choledocholithiasis/ sludge was found. Complete
removal was accomplished by biliary sphincterotomy and
balloon extraction.
Referrals:
Elaine Hernandez PA [Family Provider] -
Jeff Jaeger MD [Active] - in one to two weeks (to schedule cholecystectomy)
Prescriptions:
Continued
therapeutic multivitamin Tablet
1 tab PO DAILY
pantoprazole [Protonix] 20 mg Tablet,Delayed Release (Dr/Ec)
20 mg PO DAILY
sertraline 50 mg Tablet
75 mg PO DAILY
rosuvastatin [Crestor] 10 mg Tablet
10 mg PO QPM
Discontinued
cefdinir 300 mg Capsule
300 mg PO BID
Rx Instructions:
take for 3 days before biopsy
Discharge Orders:
Discharge Patient (As Directed); Ordered 02/15/25
Ordered By: Dhruv Mejia
Discharge Date and Time
Discharge Date/Time: 02/15/25 13:49
Print Language: THAI
== END 2025-02-15 13:49 | disposition home or self-care (01) | DRG 446 ==
LOC: 2 SOUTH 17:18
PROVIDERS: Nurse Practitioner; Registered Nurse; ADMITTING PHYSICIAN Student in an Organized Health Care Education/Training Program; ATTENDING PHYSICIAN Hospitalist; CONSULT PHYSICIAN Surgery; EMERGENCY PHYSICIAN Student in an Organized Health Care Education/Training Program; FAMILY PHYSICIAN Physician Assistant Medical; OTHER PHYSICIAN Internal Medicine Gastroenterology
PROC: 0FC98ZZ Extirpation of Matter from Common Bile Duct, Via Natural or Artificial Opening Endoscopic (ICD-10-PCS; 2025-02-14)
DX: K80.70 Calculus of gallbladder and bile duct without cholecystitis without obstruction (principal); K21.9 Gastro-esophageal reflux disease without esophagitis; E78.00 Pure hypercholesterolemia, unspecified; F41.9 Anxiety disorder, unspecified; G47.00 Insomnia, unspecified; F32.A Depression, unspecified; K76.89 Other specified diseases of liver; Z79.899 Other long term (current) drug therapy
CPT/HCPCS: 74177; 74330; 76000; 76700; 80053; 82248; 83690; 83735; 85025; 85027; 86705; 86706; 86709; 86803; 87340; 93005; 99285; C1769; Q9967

== ENCOUNTER 2025-03-06 06:28 | Day surgery (SDC) | payer OTHER, SELFPAY ==
[2025-03-06] VITALS (8 sets, daily range): BP systolic 119–153; BP diastolic 72–80; BMI 27.6
[2025-03-06] MEDS: TYLENOL 1000 MG PO (10:49)
[2025-03-06] MEDS: NORMOSOL-R/PLASMALYTE-A 1000 IV (11:00)
--- NOTE | 2025-03-06 11:01 | HP.FOC2 ---
Focused History & Physical
Chief Complaint
HPI:
Chief Complaint: Choledocholithiasis
HPI / Indication for Planned Procedure: This is a 59-year-old male who presented to our hospital 3 weeks ago with choledocholithiasis and underwent successful ERCP. He presents today for interval laparoscopic cholecystectomy with cholangiogram.
Relevant Past Medical History: Negative
Relevant Social History: Negative
Relevant Family History: Negative
Relevant Past Surgical History: Negative
Review of Systems
Review of Pertinent Systems: All Systems Negative
Medication
See Medication form for detailed medications: Yes
Medication List (including Herbals & OTC):
rosuvastatin 10 mg tablet (Crestor) 10 mg PO QPM High Cholesterol 02/13/25
sertraline 50 mg tablet 75 mg PO DAILY Mental Health/Anxiety 02/13/25
therapeutic multivitamin 1 tab PO DAILY Supplement 02/13/25
Medications Reviewed: Yes
Allergies and Reactions
Patient has Allergies: No
Noted Allergies and Reactions:
Allergy/AdvReac Type Severity Reaction Status Date / Time
No Known Allergies Allergy Verified 03/06/25 10:32
Pertinent Physical Exam
All Other Systems: Negative
Head/Neck: Normal
Diagnosis / Assessment
This is a 59-year-old male who presented to our hospital 3 weeks ago with choledocholithiasis and underwent successful ERCP.
Plan / Procedure
He presents today for interval laparoscopic cholecystectomy with cholangiogram.
Anesthesia/Sedation to be done by Anesthesia Provider: Yes
--- NOTE | 2025-03-06 11:06 | W.SUR.PREOP ---
Pre-Operative Surgical Note
-
I have examined this patient prior to the performance of the scheduled procedure.
The patient's condition is unchanged from the time of the current History and
Physical and the patient is able to undergo the scheduled procedure.
--- NOTE | 2025-03-06 12:44 | W.IMMPOSTOP ---
Surgical Immed Post Op Note
-
Primary Surgeon: Jeff Jaeger MD
Assisting Surgeon: None
Pre-op Diagnosis: Choledocholithiasis
Post-op Diagnosis: Choledocholithiasis, chronic cholecystitis
Procedure Performed: Laparoscopic cholecystectomy with cholangiogram
Anesthesia Type: General
Specimen / Cultures: Gallbladder and contents
Estimated Blood Loss: 3 cc
Complications: None
Operative Findings: Mild chronic inflammation with adhesions from the surrounding fat to the gallbladder wall that were lysed with electrocautery. Critical view of safety obtained prior to a cholangiogram which demonstrated no distal filling
defects and normal biliary anatomy.
--- NOTE | 2025-03-06 12:45 | OR.RPT ---
Operative Report
Operative Report
Patient Name: Howard Pereira
: 1965
Date of Operation: 03/06/2025
Preoperative Diagnosis: Choledocholithiasis
Postoperative Diagnosis: Choledocholithiasis, chronic cholecystitis
Procedure(s):
Laparoscopic Cholecystectomy with Cholangiogram
Surgeon(s):
Dr. Jaeger
Hitting Coach(s):
Jenny Gentile MD (PGY1)
Anesthesia: General
Estimated Blood Loss: 3 cc
Urine Output: None
Drains/Lines/Implants: None
Specimens:
1. Gallbladder and contents
HPI/Surgical Indications:
This is a 59-year-old male who presented to our hospital in mid February and found to have choledocholithiasis. He underwent a successful ERCP. Risks/Benefits/Alternatives were discussed at length, and the patient agreed to proceed with interval
cholecystectomy for which he presents for today.
Operative Findings: Mild chronic inflammation with adhesions from the surrounding fat to the gallbladder wall that were lysed with electrocautery. Critical view of safety obtained prior to a cholangiogram which demonstrated no distal filling
defects and normal biliary anatomy.
Procedure Description:
The patient was brought to the Operating Room and placed in the supine position with one arm tucked. Following uneventful induction of general endotracheal anesthesia, an orogastric tube was placed. The abdomen was prepped and draped in the usual
sterile fashion. A timeout was performed confirming the procedure, consent, and that IV antibiotics were infused and sequential compression devices were confirmed to be on. The abdomen was entered using a left subcostal Veress technique which
required a single pass followed by a 5 mm right upper quadrant Optiview trocar. Pneumoperitoneum to 15 mmHg pressure was obtained without difficulty and we confirmed that no injury had occurred during our entry. The patient was positioned in
reverse Trendelenberg and rotated with the right side up slightly. Two 5 mm trocars were then placed along the right subcostal margin, followed by a 12 mm port in the epigastrium. There were some adhesions from the surrounding fat to the anterior
surface of the gallbladder as well as to the right side of the liver. These were all lysed carefully using electrocautery and blunt dissection. A locking grasping forceps was placed on the fundus of the gallbladder where it was then retracted
cephalad and to the right. Using appropriate grasping instruments, the peritoneum overlying the triangle of Calot was incised and extended superiorly on both the anterior and posterior gallbladder colón. The infundibulum was dissected off the
cystic plate. The cystic triangle was dissected until a critical view of safety was achieved. The cystic artery was medialized, dissected and controlled with 2 proximal clips and 1 distal. The cystic duct/gallbladder junction in turn was identified,
dissected circumferentially and a clip was placed. A ductotomy was made and a cholangiocatheter on an Villareal clamp was inserted into the cystic duct. A C-arm was draped and brought into the field. An intra-operative cholangiogram was performed and
was noted to have:
No filling defects in the biliary tree
No significant biliary dilation
Brisk flow of contrast into the duodenum
Normal biliary anatomy
The catheter was then removed and the cystic duct was controlled with a clip followed by 0 PDS Endoloop. After ensuring both the artery and duct were divided, the gallbladder was freed from the liver using electrocautery. There was some minimal
spillage of bile but no spillage of stones. The gallbladder bed was inspected and excellent hemostasis was obtained. The gallbladder was extracted through the 12 mm trocar site using an endocatch bag. The abdomen was again irrigated and excellent
hemostasis was assured. All remaining trocars were then removed and the pneumoperitoneum was evacuated. The 12 mm trocar site was closed using 0 PDS suture. All trocar sites were closed at the skin level using 4-0 Monocryl followed by Dermabond.
Overall, the patient tolerated the procedure well and was taken to the Recovery Room postoperatively in stable condition.
I was the attending physician and performed the procedure with assistance from the resident above who assisted with providing tension and counter tension and performed part of the dissection removing the gallbladder off the liver. I was present for
all portions of the case, including skin closure.
Jeff Jaeger MD
== END 2025-03-06 14:23 | disposition home or self-care (01) ==
LOC: SDS 06:28
PROVIDERS: ATTENDING PHYSICIAN Surgery
DX: K81.1 Chronic cholecystitis (principal); K80.70 Calculus of gallbladder and bile duct without cholecystitis without obstruction
CPT/HCPCS: 47563; 88304; 74300; 76000; A4300

== ENCOUNTER 2025-06-18 07:48 | Outpatient (RCR) | payer OTHER, SELFPAY | END 2025-06-18 23:59 | disposition home or self-care (01) | LOC: RPT 07:48 | PROVIDERS: ATTENDING PHYSICIAN Specialist; FAMILY PHYSICIAN Physician Assistant Medical | DX: C61 Malignant neoplasm of prostate (principal); Z73.6 Limitation of activities due to disability | CPT/HCPCS: 97161; 97530 ==

== ENCOUNTER 2025-07-16 06:12 | Day surgery (SDC) | payer OTHER, SELFPAY ==
[2025-07-02 09:19] LABS: Hematocrit 43.0 % (39.0-52.0); Hemoglobin 14.2 g/dL (13.0-18.0); Mean Corp Hgb Conc. 33.0 g/dL (33.0-37.0); Mean Corpuscular Volume 90.5 fL (80.0-94.0); Platelet Count 267 10^3/uL (130-400); Red Cell Dist. Width 12.7 % (11.5-14.5)
[2025-07-02 10:13] LABS: Blood Urea Nitrogen 18 mg/dl (9-20); Calcium 9.0 mg/dl (8.4-10.2); Carbon Dioxide 27 mmol/L (22-30); Chloride 106 mmol/L (98-107); Glucose 99 mg/dl (70-99); Potassium 4.5 mmol/L (3.5-5.1); Sodium 141 mmol/L (135-145); eGFR > 60.00
[2025-07-02 10:40] LABS: PSA, Total - Diagnostic 5.26 ng/ml (0.0-4.0)
[2025-07-02 13:34] VITALS: BMI 22.3
[2025-07-16] VITALS (19 sets, daily range): BP systolic 108–143; BP diastolic 67–91; BMI 22.3
[2025-07-16] MEDS: NORMOSOL-R/PLASMALYTE-A 1000 IV ×3 (06:59→23:26)
[2025-07-16] MEDS: NEOMYCIN ENEMA 1 BOTTLE RECTAL (07:00)
[2025-07-16] MEDS: DILAUDID 0.5 MG IV (12:05)
[2025-07-16] MEDS: TORADOL 15 MG IV ×2 (17:40→23:17)
[2025-07-16] MEDS: POLYSPORIN/DOUBLE ANTIBIOTIC 1 APPLIC TOPICAL (20:06)
[2025-07-16] MEDS: CRESTOR 10 MG PO (23:17)
[2025-07-17 03:02] VITALS: BP 109/70
[2025-07-17] MEDS: TORADOL 15 MG IV (06:14)
--- NOTE | 2025-07-17 06:28 | W.PN.URO.CBU ---
Today's Communication / Plan
-
discharge
Assessment / Plan
-
stable
Diagnosis
-
Date of Service: July 17, 2025
-
Patient Diagnosis: prostate cancer s/p robotic radical prostatectomy
Post Op Day: 1
Subjective
-
expected abdominal-pelvic pain
Objective
-
Vital Signs
Temp Pulse Resp BP Pulse Ox
98.2 F 88 18 109/70 94
07/17/25 03:02 07/17/25 03:02 07/17/25 03:02 07/17/25 03:02 07/17/25 03:02
Intake and Output
07/15/25 07/16/25 07/17/25
06:59 06:59 06:59
Intake Total 2385 / 2385
Output Total 725 / 725
Balance 1660 / 1660
Intake:
Oral fluids 960 / 960
IV fluids (Total) 1425 / 1425
normosol 300 / 300
Output:
Urine, Juarez 725 / 725
labs - pending
Physical Exam
-
General - well developed, well nourished, no acute distress
Abdomen - no distention
Genitalia - Juarez with blood-tinged urine
Skin - warm & dry with no rash
Neuro - AOx3, no motor deficits
Extremities - no clubbing, no cyanosis, no edema
Dressings - clean, dry, intact
[2025-07-17 07:00] VITALS: BP 144/72
[2025-07-17] MEDS: POLYSPORIN/DOUBLE ANTIBIOTIC 1 APPLIC TOPICAL (08:09)
[2025-07-17] MEDS: ZOLOFT 75 MG PO (08:09)
[2025-07-17 08:45] LABS: Hematocrit 38.1 % (39.0-52.0); Hemoglobin 12.6 g/dL (13.0-18.0); Mean Corp Hgb Conc. 33.1 g/dL (33.0-37.0); Mean Corpuscular Volume 89.2 fL (80.0-94.0); Platelet Count 254 10^3/uL (130-400); Red Cell Dist. Width 13.2 % (11.5-14.5)
--- NOTE | 2025-07-17 09:01 | CM ---
Reviewed the chart notes and spoke with the patient at the bedside. Patient resides with his spouse in a two story home with one step to enter. Patient reports no DME/VN/SNF in the past. Patient confirmed his pharmacy of choice is [facility] [address]
[facility]. VN ordered. Discussed area VNs. Patient selected VN. Referral sent in [facility]. Patient is discharged. Patient's spouse to provide transportation home. CM continues to be available to patient/family and is monitoring medical
plan for needs at discharge.
Plan: Discharge to home with VN services.
[2025-07-17 09:09] LABS: Blood Urea Nitrogen 17 mg/dl (9-20); Calcium 8.6 mg/dl (8.4-10.2); Carbon Dioxide 27 mmol/L (22-30); Chloride 102 mmol/L (98-107); Estimated Creatinine Clearance 88 ml/min; Glucose 106 mg/dl (70-99); Potassium 4.3 mmol/L (3.5-5.1); Sodium 137 mmol/L (135-145); eGFR > 60.00
== END 2025-07-17 10:35 | disposition home or self-care (01) ==
LOC: SDS 06:12
PROVIDERS: ATTENDING PHYSICIAN Specialist; FAMILY PHYSICIAN Physician Assistant Medical
DX: C61 Malignant neoplasm of prostate (principal)
CPT/HCPCS: 55866; 36415; 80048; 84153; 85027; 86850; 86900; 86901; 88307; 88309; 88344

== ENCOUNTER 2025-08-01 09:20 | Outpatient (RCR) | payer OTHER, SELFPAY | END 2025-08-01 23:59 | disposition home or self-care (01) | LOC: RPT 09:20 | PROVIDERS: ATTENDING PHYSICIAN Specialist; FAMILY PHYSICIAN Physician Assistant Medical | DX: C61 Malignant neoplasm of prostate (principal); Z73.6 Limitation of activities due to disability; Z90.79 Acquired absence of other genital organ(s); Z98.890 Other specified postprocedural states | CPT/HCPCS: 97110; 97140; 97164; 97530 ==

== ENCOUNTER 2025-08-27 06:51 | Outpatient (RCR) | payer OTHER, SELFPAY | END 2025-08-27 23:59 | disposition home or self-care (01) | LOC: RPT 06:51 | PROVIDERS: ATTENDING PHYSICIAN Specialist; FAMILY PHYSICIAN Physician Assistant Medical | DX: C61 Malignant neoplasm of prostate (principal); Z73.6 Limitation of activities due to disability; Z90.79 Acquired absence of other genital organ(s); Z98.890 Other specified postprocedural states | CPT/HCPCS: 97110; 97112; 97140; 97530 ==

== ENCOUNTER 2025-09-15 07:20 | Outpatient (RCR) | payer OTHER, SELFPAY | END 2025-09-15 23:59 | disposition home or self-care (01) | LOC: RPT 07:20 | PROVIDERS: ATTENDING PHYSICIAN Specialist; FAMILY PHYSICIAN Physician Assistant Medical | DX: C61 Malignant neoplasm of prostate (principal); Z73.6 Limitation of activities due to disability; Z90.79 Acquired absence of other genital organ(s); Z98.890 Other specified postprocedural states | CPT/HCPCS: 97110; 97112; 97530 ==

== ENCOUNTER 2025-10-13 07:02 | Outpatient (RCR) | payer OTHER, SELFPAY | END 2025-10-13 09:06 | disposition home or self-care (01) | LOC: RPT 07:02 | PROVIDERS: ATTENDING PHYSICIAN Specialist; FAMILY PHYSICIAN Physician Assistant Medical | DX: C61 Malignant neoplasm of prostate (principal); Z73.6 Limitation of activities due to disability; Z90.79 Acquired absence of other genital organ(s); Z98.890 Other specified postprocedural states | CPT/HCPCS: 97110; 97112 ==